=== PATIENT | female | born 1975 | race Caucasian/White ===

== ENCOUNTER 2017-07-22 12:34 | Emergency (ER) | payer OTHER ==
[~2017-07-22] VITALS: Ht 165.1 cm; Wt 52.3 kg
[2017-07-22] MEDS ORDERED: APIXABAN 5 MG TABLET PO ONE (13:30)
[2017-07-22 13:40] VITALS: BP 109/66
[2017-07-25 09:06] LABS: DILUTE PROTHROMBIN TIME (DPT) 47.5 sec (0.0-55.0); DILUTE RUSSELL'S VIPER VENOM 35.3 sec (0.0-47.0); LUPUS REFLEX INTERPRETATION Comment: (.); PTT-LA 31.5 sec (0.0-51.9)
[2017-07-27 18:07] LABS: FACTOR II DNA ANALYSIS Negative (.)
== END 2017-07-22 14:12 | disposition home or self-care (01) ==
LOC: ED 14:06
DX: I82.402 Acute embolism and thrombosis of unspecified deep veins of left lower extremity (principal)
CPT/HCPCS: 36415; 81240; 81241; 85300; 85303; 85306; 85613; 85670; 85705; 85732; 86147; 99284

== ENCOUNTER 2017-07-23 19:28 | Emergency (ER) | payer OTHER ==
[~2017-07-23] VITALS: Ht 165.1 cm; Wt 52.0 kg
[2017-07-23 20:20] LABS: HEMATOCRIT 38.1 % (34.6-47.8); HEMOGLOBIN 12.7 g/dL (11.7-16.4); WHITE BLOOD COUNT 6.2 x10^3/uL (3.4-10)
[2017-07-23 20:26] LABS: ASPARTATE AMINO TRANSFERASE 18 U/L (15-37); BLOOD UREA NITROGEN 16 mg/dL (7-18)
[2017-07-23 20:31] LABS: IS PT STATUS REG ER OR PRE ER? YES
[2017-07-23 21:15] VITALS: BP 101/66
[2017-07-24] MEDS ORDERED: OMNIPAQUE 350 MG/ML, 100ML BOTTLE ONE (05:08)
== END 2017-07-23 21:52 | disposition home or self-care (01) ==
LOC: ED 21:12
DX: R07.89 Other chest pain (principal)
CPT/HCPCS: 36415; 71275; 80053; 84484; 85025; 93005; 99285; Q9967

== ENCOUNTER → 2019-04-13 | Outpatient (CLI) | payer OTHER ==
[~2019-04-13] MED LIST: APIX5TAB PO
[2019-04-13 11:29] LABS: BASOPHILS # (AUTO) 0.03 x10^3/uL (0-0.1); BASOPHILS % (AUTO) 1 % (0-1); EOSINOPHILS # (AUTO) 0.04 x10^3/uL (0-0.4); EOSINOPHILS % (AUTO) 1 % (1-7); LYMPHOCYTES # (AUTO) 1.17 x10^3/uL (1-3.4); LYMPHOCYTES % (AUTO) 23 % (22-44); MD NO; MEAN CORPUSCULAR HEMOGLOBIN 27.9 pg (27.0-34.8); MEAN CORPUSCULAR HGB CONC 31.7 g/dL (32.4-35.8); MEAN CORPUSCULAR VOLUME 87.9 fL (80-100); MEAN PLATELET VOLUME 9.1 fL (7.4-10.4); MONOCYTES # (AUTO) 0.59 x10^3/uL (0.2-0.8); MONOCYTES % (AUTO) 11 % (2-9); NEUTROPHILS # (AUTO) 3.31 x10^3/uL (1.8-6.8); NEUTROPHILS % (AUTO) 65 % (42-75); PLATELET COUNT 198 x10^3/uL (130-400); RED BLOOD COUNT 4.29 x10^6/uL (3.82-5.3); RED CELL DISTRIBUTION WIDTH 17.9 % (9.6-15.2)
[2019-04-13 11:42] LABS: MICROSCOPIC NOT IND
[2019-04-13 11:47] LABS: CULTURE INDICATED? NO
[2019-04-13 11:56] LABS: ALBUMIN 4.1 g/dL (3.4-5.0); ANION GAP 6 mmol/L (5-15); CALCIUM 8.7 mg/dL (8.5-10.1); CHLORIDE 107 mmol/L (98-107)
[2019-04-13 12:02] LABS: ALANINE AMINOTRANSFERASE 34 U/L (12-78); ALKALINE PHOSPHATASE 58 U/L (45-117); BILIRUBIN,TOTAL 0.4 mg/dL (0.2-1.0); CREATININE 0.73 mg/dL (0.55-1.02); TOTAL PROTEIN 7.1 g/dL (6.4-8.2)
== END | disposition home or self-care (01) ==
LOC: STAR 10:26
PROVIDERS: ATTEND Obstetrics & Gynecology Gynecology
DX: Z01.818 Encounter for other preprocedural examination (principal); D25.9 Leiomyoma of uterus, unspecified; Z90.710 Acquired absence of both cervix and uterus; Z98.890 Other specified postprocedural states
CPT/HCPCS: 36415; 80053; 81003; 84703; 85025

== ENCOUNTER 2019-04-21 07:48 | Observation (INO) | payer OTHER ==
[~2019-04-21] VITALS: Ht 165.1 cm; Wt 57.0 kg
[~2019-04-21 07:48] MED LIST changes: +BUPIVACAINE/PF 0.25% ONE; +LIDOCAINE 1%-EPI 1:100K, 30ML ONE
[2019-04-21] MEDS ORDERED: INDIGO CARMINE 0.8%, 5ML ONE (07:57)
[2019-04-21] MEDS ORDERED: FENTANYL PF 250 MCG/5ML ONE ×2 (07:58→11:18)
[2019-04-21] MEDS ORDERED: MIDAZOLAM 1 MG/ML, 2ML ONE (07:58)
[2019-04-21] MEDS ORDERED: ONDANSETRON 2MG/ML, 2ML ONE (08:02)
[2019-04-21] MEDS ORDERED: NEOSTIGMINE 1 MG/ML, 10ML ONE (08:02)
[2019-04-21] MEDS ORDERED: GLYCOPYRROLATE 0.2MG/1ML, 5ML ONE (08:02)
[2019-04-21] MEDS ORDERED: PROPOFOL 10 MG/ML, 20ML ONE (08:02)
[2019-04-21] MEDS ORDERED: CEFAZOLIN 1,000 MG ONE (08:02)
[2019-04-21] MEDS ORDERED: DEXAMETHASONE 4 MG/ML, 1ML ONE (08:02)
[2019-04-21] MEDS ORDERED: ROCURONIUM 10MG/ML,5ML ONE (08:02)
[2019-04-21] MEDS ORDERED: GABAPENTIN 300 MG CAPSULE ONE (08:36)
[2019-04-21] MEDS ORDERED: ACETAMINOPHEN 500 MG TABLET ONE (08:36)
[2019-04-21] MEDS: LACTATED RINGERS 1,000 ML IV SCH ×5 (08:43→22:06)
[2019-04-21 08:45] LABS: HCG UR SG 1.025 (1.003-1.030)
[2019-04-21] MEDS ORDERED: ACETAMINOPHEN 500 MG TABLET PO ONE (09:00)
[2019-04-21] MEDS ORDERED: GABAPENTIN 300 MG CAPSULE PO ONE (09:00)
[2019-04-21] MEDS ORDERED: PROMETHAZINE 25 MG/ML, 1ML IV PRN (10:30)
[2019-04-21] MEDS ORDERED: ONDANSETRON ODT 8 MG PO PRN (10:30)
[2019-04-21] MEDS ORDERED: OXYcodone 5 MG/5 ML ORAL.SOL UDC PO PRN (10:30)
[2019-04-21] MEDS ORDERED: FENTANYL PF 100 MCG/2ML IV PRN (10:30)
[2019-04-21] MEDS ORDERED: hydrALAzine 20 MG/ML, 1ML IV PRN (10:30)
[2019-04-21] MEDS ORDERED: PROMETHAZINE 12.5 MG SUPP PR PRN ×3 (10:30→16:00)
[2019-04-21] MEDS ORDERED: PROMETHAZINE 25 MG SUPP PR PRN (10:30)
[2019-04-21] MEDS ORDERED: HYDROmorphone 2 MG/ML, 1ML IVPush PRN (10:30)
[2019-04-21] MEDS ORDERED: HALOPERIDOL 5 MG/ML IV PRN (10:30)
[2019-04-21] MEDS ORDERED: MEPERIDINE/PF 25MG/0.5ML IVPush PRN (10:30)
[2019-04-21] MEDS ORDERED: LABETALOL 5MG/ML, 20ML IV PRN (10:30)
[2019-04-21] MEDS ORDERED: ONDANSETRON 2MG/ML, 2ML IV PRN (10:30)
[2019-04-21] MEDS ORDERED: PROMETHAZINE 25 MG/ML, 1ML IM PRN ×2 (10:30)
[2019-04-21] MEDS ORDERED: MORPHINE SULFATE 4 MG/ML, 1ML IVPush PRN (10:30)
[2019-04-21] MEDS ORDERED: PROMETHAZINE 25 MG/ML, 1ML ONE (12:55)
[2019-04-21] MEDS ORDERED: HYDROmorphone 2 MG/ML, 1ML ONE (12:55)
[2019-04-21 13:40] VITALS: BP 99/62
[2019-04-21 13:55] VITALS: BP 95/59
[2019-04-21 14:30] VITALS: BP 100/68
[2019-04-21] MEDS ORDERED: HYDROmorphone 2 MG/ML, 1ML IV PRN (14:30)
[2019-04-21] MEDS ORDERED: ONDANSETRON 2MG/ML, 2ML IVPush PRN (14:30)
[2019-04-21 14:55] VITALS: BP 99/62
[2019-04-21 15:30] VITALS: BP 111/55
[2019-04-21] MEDS: ACETAMINOPHEN 325 MG TABLET PO PRN ×2 (15:53→22:04)
[2019-04-21 20:30] VITALS: BP 108/70
[2019-04-22 04:50] VITALS: BP 94/56
[2019-04-22] MEDS: ACETAMINOPHEN 325 MG TABLET PO PRN (04:53)
[2019-04-22] MEDS: LACTATED RINGERS 1,000 ML IV SCH (04:58)
[2019-04-22 09:02] VITALS: BP 92/62
[2019-04-22] MEDS ORDERED: HYDR-3653 PO (11:15)
== END 2019-04-22 11:53 | disposition home or self-care (01) ==
LOC: OUT 07:48 → 2NW 13:43 → OUT 14:12 → 2NW 14:36 → DCLOUNGE 04-22 11:43
PROVIDERS: ADMIT Obstetrics & Gynecology Gynecology; ATTEND Obstetrics & Gynecology Gynecology
DX: D25.9 Leiomyoma of uterus, unspecified (principal); N92.0 Excessive and frequent menstruation with regular cycle; D64.9 Anemia, unspecified; Z86.718 Personal history of other venous thrombosis and embolism; Z79.01 Long term (current) use of anticoagulants
CPT/HCPCS: 36415; 58262; 81025; 85014; 88305; 88307; G0378; J0690; J1100; J1170; J2250; J2405; J2550; J2704; J2710; J3010; J3490; J7120

== ENCOUNTER 2019-12-20 16:26 | Emergency (ER) | payer OTHER ==
[~2019-12-20] VITALS: Ht 165.1 cm; Wt 54.5 kg
[~2019-12-20 16:26] MED LIST changes: -BUPIVACAINE/PF 0.25% ONE; +HYDR-3653 PO; -LIDOCAINE 1%-EPI 1:100K, 30ML ONE
[2019-12-20] MEDS ORDERED: SODIUM CHLORIDE 0.9% 1,000ML IVBOLUS ONE (19:00)
[2019-12-20] MEDS ORDERED: SODIUM CHLORIDE FLUSH 10ML SYR IVF ONE (19:00)
--- NOTE | 2019-12-20 19:15 | NUR ---
IV PLACED, LABS DRAWN WITH START. [facility] PLACED IN ROOM FOR URINE SPECIMEN. CALL LIGHT WITHIN REACH. IVF BOLUS INFUSING.
[2019-12-20 19:24] LABS: ALANINE AMINOTRANSFERASE 53 U/L (12-78); ALBUMIN 4.1 g/dL (3.4-5.0); ANION GAP 7 mmol/L (5-15); CALCIUM 8.7 mg/dL (8.5-10.1); CHLORIDE 108 mmol/L (98-107); CREATININE 0.74 mg/dL (0.55-1.02)
[2019-12-20 19:26] LABS: ALKALINE PHOSPHATASE 69 U/L (45-117); BILIRUBIN,TOTAL 0.5 mg/dL (0.2-1.0); TOTAL PROTEIN 7.1 g/dL (6.4-8.2)
--- NOTE | 2019-12-20 19:33 | NUR ---
URINE COLLECTED/SENT TO LAB. CALL LIGHT WITHIN REACH, WARM BLANKET PROVIDED.
[2019-12-20 19:34] LABS: BASOPHILS # (AUTO) 0.01 x10^3/uL (0-0.1); BASOPHILS % (AUTO) 0 % (0-1); EOSINOPHILS # (AUTO) 0.05 x10^3/uL (0-0.4); EOSINOPHILS % (AUTO) 1 % (1-7); LYMPHOCYTES # (AUTO) 1.56 x10^3/uL (1-3.4); LYMPHOCYTES % (AUTO) 28 % (22-44); MD NO; MEAN CORPUSCULAR HEMOGLOBIN 30.5 pg (27.0-34.8); MEAN CORPUSCULAR HGB CONC 32.1 g/dL (32.4-35.8); MEAN PLATELET VOLUME 8.6 fL (7.4-10.4); MONOCYTES # (AUTO) 0.52 x10^3/uL (0.2-0.8); MONOCYTES % (AUTO) 9 % (2-9); NEUTROPHILS # (AUTO) 3.39 x10^3/uL (1.8-6.8); NEUTROPHILS % (AUTO) 61 % (42-75); PLATELET COUNT 279 x10^3/uL (130-400); RED BLOOD COUNT 4.74 x10^6/uL (3.82-5.3); RED CELL DISTRIBUTION WIDTH 14.9 % (9.6-15.2)
[2019-12-20 19:56] LABS: MICROSCOPIC NOT IND
[2019-12-20 20:14] LABS: CULTURE INDICATED? NO
[2019-12-20] MEDS ORDERED: OMNIPAQUE 350 MG/ML, 100ML BOTTLE ONE (20:16)
--- NOTE | 2019-12-20 20:43 | NUR ---
PT BACK FROM CT.
[2019-12-20 20:55] VITALS: BP 109/71
--- NOTE | 2019-12-20 20:57 | NUR ---
PT STATES SY AND DIZZINESS LESS AT THIS TIME. ORTHOSTATIC BP, HR COMPLETED IN SUPINE AND SITTING POSITION. PT WITH INCREASED DIZZINESS WHEN GOING FROM SUPINE TO SITTING BUT OTHERWISE ORTHOS WNL. PT AND FAMILY UPDATED ON RESULTS. PT FOR RECHECK.
== END 2019-12-20 21:49 | disposition home or self-care (01) ==
LOC: ED 21:40
DX: R51 Headache (principal); R55 Syncope and collapse; R10.9 Unspecified abdominal pain; M54.2 Cervicalgia; R11.0 Nausea; R94.31 Abnormal electrocardiogram [ECG] [EKG]; Z90.710 Acquired absence of both cervix and uterus; Z86.718 Personal history of other venous thrombosis and embolism
CPT/HCPCS: 36415; 70450; 80053; 81003; 83690; 83735; 85025; 93005; 96360; 99285; J7030; Q9967

== ENCOUNTER → 2020-04-10 | Outpatient (CLI) | payer OTHER | END | disposition home or self-care (01) | LOC: CFH 07:24 → EDSTATUS 07:45 | PROVIDERS: ATTEND Family Medicine | DX: K82.4 Cholesterolosis of gallbladder (principal); R59.1 Generalized enlarged lymph nodes | CPT/HCPCS: 76536; 76700; 76857 ==

== ENCOUNTER 2021-03-14 13:40 | Emergency (ER) | payer OTHER ==
[~2021-03-14] VITALS: Ht 167.6 cm; Wt 50.4 kg
[2021-03-14 14:10] LABS: BASOPHILS % (AUTO) 1 % (0-1); EOSINOPHILS % (AUTO) 3 % (1-7); LYMPHOCYTES % (AUTO) 21 % (22-44); MEAN CORPUSCULAR HEMOGLOBIN 32.2 pg (27.0-34.8); MEAN CORPUSCULAR HGB CONC 34.5 g/dL (32.4-35.8); MEAN PLATELET VOLUME 9.5 fL (7.4-10.4); MONOCYTES % (AUTO) 6 % (2-9); NEUTROPHILS % (AUTO) 70 % (42-75); PLATELET COUNT 170 x10^3/uL (130-400); RED BLOOD COUNT 4.27 x10^6/uL (3.82-5.3); RED CELL DISTRIBUTION WIDTH 14.7 % (9.6-15.2)
[2021-03-14 14:11] LABS: MD NO
[2021-03-14 14:20] LABS: ALANINE AMINOTRANSFERASE 20 U/L (12-78); ALBUMIN 3.9 g/dL (3.4-5.0); ANION GAP 10 mmol/L (5-15); CALCIUM 8.7 mg/dL (8.5-10.1); CHLORIDE 109 mmol/L (98-107); CREATININE 0.57 mg/dL (0.55-1.02)
[2021-03-14 14:22] LABS: ALKALINE PHOSPHATASE 49 U/L (45-117); BILIRUBIN,TOTAL 0.6 mg/dL (0.2-1.0); TOTAL PROTEIN 6.4 g/dL (6.4-8.2)
--- NOTE | 2021-03-14 14:50 | NUR ---
CONTACT WITH PT, 45 YR OLD FEMALE HERE WITH C/O "I GOT A REALLY BAD STOMACH ACHE AT 1000. IT COMES IN WAVES, WITH N/V/D. I HAD THE SAME THING ON WEDNESDAY, IT LASTED ABOUT 3 HOURS" PT ABLE TO AMB TO BR AND PROVIDE URINE SPECIMAN.
--- NOTE | 2021-03-14 15:03 | NUR ---
REPORT TO AMINA REYES
[2021-03-14 15:26] LABS: MICROSCOPIC NOT IND
[2021-03-14 16:23] VITALS: BP 108/66
--- NOTE | 2021-03-14 16:45 | NUR ---
Patient given discharge instructions and they have confirmed that they understand the instructions. Patient ambulatory with steady gait.
== END 2021-03-14 16:47 | disposition home or self-care (01) ==
LOC: ED 16:40
DX: R10.13 Epigastric pain (principal); R11.2 Nausea with vomiting, unspecified; R19.7 Diarrhea, unspecified; Z86.718 Personal history of other venous thrombosis and embolism
CPT/HCPCS: 36415; 76705; 80053; 81003; 83690; 85025; 99284